=== PATIENT | male | born 1975 | race American Indian/Alaskan Native ===

== ENCOUNTER 2021-06-28 10:29 | Inpatient (IN) | payer MEDICAID ==
[2021-06-28 11:05] LABS: Bilirubin,Urine NEG (Negative); Blood,Urine SM (Negative); Color,Urine Yellow (Yellow); Mucus,Urine FEW /HPF; Protein,Urine <15 mg/dL mg/dL (Negative); Urobilinogen,Urine < 2.0 mg/dL (<2.0)
[2021-06-28 11:10] LABS: Benzodiazepines Screen,Urine Negative; Cocaine Screen,Urine Negative; Methadone Screen,Urine Negative; Opiate Screen,Urine Negative
[2021-06-28] MEDS ORDERED: ASPIRIN 325 MG TAB PO ONE (11:15)
--- NOTE | 2021-06-28 11:22 | Emergency Department Report ---
HPI - General Chief Complaint: Anxiety Time Seen by Provider: 06/28/21 11:06 - HPI HPI: Room 1 The patient is a 46-year-old male present with chief complaint of chest pain. Patient states since yesterday he has had left chest pain and anxiety. Patient describes his chest pain is squeezing in nature and intermittent. Patient states shortness of breath and diaphoresis with this pain but denies nausea/vomiting. Patient admits to a cough has been nonproductive for the past 2 to 3 days. Patient currently denies chest pain at this moment. Patient denies pleurisy or recent flights/long car trips. Patient had a history of HOCM and had corrective surgery. Patient states his last cardiac catheterization was over 5 years ago ED Past Medical Hx - Past Medical History Previous Medical History?: Yes Hx Hypertension: Yes Hx Diabetes: Yes Additional medical history: Hypertrophic obstructive cardiomyopathy status post surgical correction - Surgical History Past Surgical History?: Yes - Family History Family history: no significant - Social History Smoking Status: Current Every Day Smoker (1/2 pack/day) Substance Use Type: Alcohol (Rarely), Marijuana ED Review of Systems ROS: Stated complaint: ANXIETY/MED REFILL Other details as noted in HPI Constitutional: diaphoresis Eyes: denies: eye pain ENT: denies: throat pain Respiratory: shortness of breath Cardiovascular: chest pain Endocrine: no symptoms reported Gastrointestinal: denies: nausea, vomiting Genitourinary: denies: dysuria Musculoskeletal: denies: back pain Neurological: denies: headache Psychiatric: anxiety Physical Exam - Physical Exam Vital Signs: Vital Signs 06/28/21 06/28/21 10:32 10:47 Pulse Rate 96 H Blood Pressure 142/76 [Left] O2 Sat by Pulse 99 99 Oximetry Physical Exam: GENERAL: The patient is well-developed well-nourished male lying on stretcher not appearing to be in acute distress. [] HEENT: Normocephalic. Atraumatic. Extraocular motions are intact. Patient has moist mucous membranes. NECK: Supple. Trachea midline CHEST/LUNGS: Clear to auscultation. There is no respiratory distress noted. HEART/CARDIOVASCULAR: Regular. There is no tachycardia. There is no gallop rub or murmur. ABDOMEN: Abdomen is soft, nontender. Patient has normal bowel sounds. There is no abdominal distention. SKIN: There is no rash. There is no edema. There is no diaphoresis. NEURO: The patient is awake, alert, and oriented. The patient is cooperative. The patient has no focal neurologic deficits. The patient has normal speech. GCS 15 MUSCULOSKELETAL: There is no evidence of acute injury. ED Course Vital Signs 06/28/21 06/28/21 10:32 10:47 Pulse Rate 96 H Blood Pressure 142/76 [Left] O2 Sat by Pulse 99 99 Oximetry ED Medical Decision Making - Lab Data Result diagrams: 06/28/21 11:21 06/28/21 11:21 - EKG Data -: EKG Interpreted by Me EKG shows normal: sinus rhythm Rate: normal - EKG Data When compared to previous EKG there are: previous EKG unavailable Interpretation: nonspecific ST-T wave jam (T wave inversions leads V5, V6) - Differential Diagnosis ACS, PE, GERD, anxiety Critical care attestation.: If time is entered above; I have spent that time in minutes in the direct care of this critically ill patient, excluding procedure time. ED Disposition Clinical Impression: Chest pain, Amphetamine abuse, T wave inversion in EKG Disposition: ADMITTED INPATIENT Is pt being admited?: Yes Does the pt Need Aspirin: Yes Condition: Fair Instructions: Nonspecific Chest Pain, Adult Time of Disposition: 13:59 (Care transferred to the hospitalist (Dr. Brown)) Heart Score - HEART Score History: Moderately suspicious EKG: Non-specific Age: 45-65 Risk factors: 1-2 risk factors Troponin: < normal limit HEART Score: 4 - EKG Read Time Time EKG Completed: 13:53 EKG Read Time: 13:58
[2021-06-28 11:41] LABS: Basophils # (Auto) 0.1 K/mm3 (0.0-0.1); Basophils % (Auto) 0.7 % (0.0-1.8); Eosinophils % (Auto) 0.6 % (0.0-4.3); Hematocrit 38.4 % (35.5-45.6); Hemoglobin 13.1 gm/dl (11.8-15.2); Lymphocytes # (Auto) 2.5 K/mm3 (1.2-5.4); Lymphocytes % (Auto) 34.5 % (13.4-35.0); Mean Corpuscular HGB Conc 34 % (32-34); Mean Corpuscular Volume 91 fl (84-94); Monocytes # (Auto) 0.5 K/mm3 (0.0-0.8); Monocytes % (Auto) 6.6 % (0.0-7.3); Platelet Count 219 K/mm3 (140-440); Red Blood Count 4.21 M/mm3 (3.65-5.03); Red Cell Distribution Width 15.1 % (13.2-15.2)
[2021-06-28 12:02] LABS: Blood Urea Nitrogen 5 mg/dL (9-20); Creatine Kinase MB 4.9 ng/mL (0.0-4.0); Hemolysis Index 8
[2021-06-28 12:10] LABS: BUN/Creatinine Ratio 8
[2021-06-28 12:26] LABS: Amphetamine Screen,Urine Positive; Cannabinoid Screen,Urine Positive
--- NOTE | 2021-06-28 13:23 | XRay Report ---
XR chest 1V ap INDICATION / CLINICAL INFORMATION: chest pain COMPARISON: None available. FINDINGS: SUPPORT DEVICES: Left transvenous AICD. HEART / MEDIASTINUM: No significant abnormality. LUNGS / PLEURA: Lungs are clear. Costophrenic sulci are sharp. No pneumothorax. ADDITIONAL FINDINGS: No significant additional findings. IMPRESSION: 1. No acute findings. Signer Name: Jordan Barahona MD Signed: 06/28/2021 1:19 PM Workstation Name: [id number]
[2021-06-28] MEDS ORDERED: levoFLOXacin 500 MG TAB PO ONE (14:03)
[2021-06-28] MEDS ORDERED: NITROGLYCERIN 2% OINT 1 GM TP ONE (14:03)
[2021-06-28] MEDS ORDERED: ONDANSETRON 4 MG/2 ML INJ IV PRN (16:45)
[2021-06-28] MEDS ORDERED: ACETAMINOPHEN 325 MG TAB PO PRN (16:45)
[2021-06-28] MEDS ORDERED: HYDROmorphone 1 MG/1 ML INJ IV PRN (17:12)
[2021-06-28] MEDS ORDERED: METOCLOPRAMIDE 10 MG/2 ML INJ IV PRN (17:12)
[2021-06-28] MEDS ORDERED: INSULIN LISPRO 100 UNIT/ML SUB-Q ONE (17:37)
--- NOTE | 2021-06-28 17:48 | History and Physical Report ---
History of Present Illness Date of examination: 06/28/21 Date of admission: 06/28/2021 Chief complaint: Chest pain since yesterday History of present illness: The patient is a 46-year-old male present with chief complaint of chest pain. Patient states since yesterday he has had left chest pain and anxiety. Patient describes his chest pain is squeezing in nature and intermittent. Patient states shortness of breath and diaphoresis with this pain but denies nausea/ vomiting. Patient admits to a cough has been nonproductive for the past 2 to 3 days. Patient currently denies chest pain at this moment. Patient denies pleurisy or recent flights/long car trips. Patient had a history of HOCM and had corrective surgery. Patient states his last cardiac catheterization was over 5 years ago - Past Medical History --Previous Medical History?: Yes --Hypertension: Yes --Diabetes: Yes --Additional medical history: Hypertrophic obstructive cardiomyopathy status post surgical correction - Surgical History --Past Surgical History?: Yes - Family History --Family history: no significant - Social History --Smoking Status: Current Every Day Smoker (1/2 pack/day) --Substance Use Type: Alcohol (Rarely), Marijuana Review of Systems ROS: Stated complaint: ANXIETY/MED REFILL Other details as noted in HPI Constitutional: diaphoresis Eyes: denies: eye pain ENT: denies: throat pain Respiratory: shortness of breath Cardiovascular: chest pain Endocrine: no symptoms reported Gastrointestinal: denies: nausea, vomiting Genitourinary: denies: dysuria Musculoskeletal: denies: back pain Neurological: denies: headache Psychiatric: anxiety Medications and Allergies Allergies Allergy/AdvReac Type Severity Reaction Status Date / Time No Known Allergies Allergy Verified 06/28/21 10:33 Exam - Constitutional Vitals: Temp Pulse Resp BP Pulse Ox 73 16 150/82 100 06/28/21 15:52 06/28/21 15:52 06/28/21 15:52 06/28/21 15:52 General appearance: Present: no acute distress, well-nourished - EENT Eyes: Present: PERRL ENT: hearing intact, clear oral mucosa - Neck Neck: Present: supple, normal ROM - Respiratory Respiratory effort: normal Respiratory: bilateral: CTA - Cardiovascular Heart rate: 78 Rhythm: regular Heart Sounds: Present: S1 & S2. Absent: rub, click - Extremities Extremities: pulses symmetrical, No edema Peripheral Pulses: within normal limits - Abdominal General gastrointestinal: Present: soft, non-tender, non-distended, normal bowel sounds Male genitourinary: Present: normal - Integumentary Integumentary: Present: clear, warm, dry - Musculoskeletal Musculoskeletal: gait normal, strength equal bilaterally - Psychiatric Psychiatric: appropriate mood/affect, intact judgment & insight - Neurologic Neurologic: CNII-XII intact, moves all extremities HEART Score - HEART Score EKG: Non-specific Age: 45-65 Risk factors: 1-2 risk factors Troponin: Troponin T < 0.010 ng/mL (0.00-0.029) 06/28/21 11:21 Troponin: < normal limit - Critical Actions Critical Actions: 4-6 pts:12-16.6% risk of adverse cardiac event. Should be admitted Results - Labs CBC & Chem 7: 06/28/21 11:21 06/29/21 05:22 Labs: Laboratory Last Values WBC 7.3 K/mm3 (4.5-11.0) 06/28/21 11:21 RBC 4.21 M/mm3 (3.65-5.03) 06/28/21 11:21 Hgb 13.1 gm/dl (11.8-15.2) 06/28/21 11:21 Hct 38.4 % (35.5-45.6) 06/28/21 11:21 MCV 91 fl (84-94) 06/28/21 11:21 MCH 31 pg (28-32) 06/28/21 11:21 MCHC 34 % (32-34) 06/28/21 11:21 RDW 15.1 % (13.2-15.2) 06/28/21 11:21 Plt Count 219 K/mm3 (140-440) 06/28/21 11:21 Lymph % (Auto) 34.5 % (13.4-35.0) 06/28/21 11:21 Clark % (Auto) 6.6 % (0.0-7.3) 06/28/21 11:21 Eos % (Auto) 0.6 % (0.0-4.3) 06/28/21 11:21 Baso % (Auto) 0.7 % (0.0-1.8) 06/28/21 11:21 Lymph # (Auto) 2.5 K/mm3 (1.2-5.4) 06/28/21 11:21 Clark # (Auto) 0.5 K/mm3 (0.0-0.8) 06/28/21 11:21 Eos # (Auto) 0.0 K/mm3 (0.0-0.4) 06/28/21 11:21 Baso # (Auto) 0.1 K/mm3 (0.0-0.1) 06/28/21 11:21 Seg Neutrophils % 57.6 % (40.0-70.0) 06/28/21 11:21 Seg Neutrophils # 4.2 K/mm3 (1.8-7.7) 06/28/21 11:21 D-Dimer 240.16 ng/mlDDU (0-234) H 06/28/21 11:21 Sodium 137 mmol/L (137-145) 06/28/21 11:21 Potassium 3.7 mmol/L (3.6-5.0) 06/28/21 11:21 Chloride 96.0 mmol/L (98-107) L 06/28/21 11:21 Carbon Dioxide 27 mmol/L (22-30) 06/28/21 11:21 Anion Gap 18 mmol/L 06/28/21 11:21 BUN 5 mg/dL (9-20) L 06/28/21 11:21 Creatinine 0.6 mg/dL (0.8-1.3) L 06/28/21 11:21 Estimated GFR > 60 ml/min 06/28/21 11:21 BUN/Creatinine Ratio 8 % 06/28/21 11:21 Glucose 347 mg/dL (75-100) H 06/28/21 11:21 Calcium 9.0 mg/dL (8.4-10.2) 06/28/21 11:21 Total Creatine Kinase 165 units/L (55-170) 06/28/21 11:21 CK-MB (CK-2) 4.9 ng/mL (0.0-4.0) H 06/28/21 11:21 CK-MB (CK-2) Rel Index 2.9 (0-4) 06/28/21 11:21 Troponin T < 0.010 ng/mL (0.00-0.029) 06/28/21 11:21 Urine Color Yellow (Yellow) 06/28/21 10:47 Urine Turbidity Hazy (Clear) 06/28/21 10:47 Urine pH 5.0 (5.0-7.0) 06/28/21 10:47 Ur Specific [place] 1.032 (1.003-1.030) H 06/28/21 10:47 Urine Protein <15 mg/dl mg/dL (Negative) 06/28/21 10:47 Urine Glucose (UA) >=500 mg/dL (Negative) 06/28/21 10:47 Urine Ketones Neg mg/dL (Negative) 06/28/21 10:47 Urine Blood Sm (Negative) 06/28/21 10:47 Urine Nitrite Neg (Negative) 06/28/21 10:47 Urine Bilirubin Neg (Negative) 06/28/21 10:47 Urine Urobilinogen < 2.0 mg/dL (<2.0) 06/28/21 10:47 Ur Leukocyte Esterase Tr (Negative) 06/28/21 10:47 Urine WBC (Auto) 60.0 /HPF (0.0-6.0) H 06/28/21 10:47 Urine RBC (Auto) 1.0 /HPF (0.0-6.0) 06/28/21 10:47 U Epithel Cells (Auto) < 1.0 /HPF (0-13.0) 06/28/21 10:47 Urine Mucus Few /HPF 06/28/21 10:47 Urine Opiates Screen Negative 06/28/21 10:47 Urine Methadone Screen Negative 06/28/21 10:47 Ur Barbiturates Screen Negative 06/28/21 10:47 Ur Phencyclidine Scrn Negative 06/28/21 10:47 Ur Amphetamines Screen Positive 06/28/21 10:47 U Benzodiazepines Scrn Negative 06/28/21 10:47 Urine Cocaine Screen Negative 06/28/21 10:47 U Marijuana (THC) Screen Positive 06/28/21 10:47 Drugs of Abuse Note Disclamer 06/28/21 10:47 Short CBC 06/28/21 Range/Units 11:21 WBC 7.3 (4.5-11.0) K/mm3 Hgb 13.1 (11.8-15.2) gm/dl Hct 38.4 (35.5-45.6) % Plt Count 219 (140-440) K/mm3 [facility] 06/28/21 11:21 Sodium 137 Potassium 3.7 Chloride 96.0 L Carbon Dioxide 27 BUN 5 L Creatinine 0.6 L Glucose 347 H Calcium 9.0 Cardiac Enzymes 06/28/21 Range/Units 11:21 Total Creatine Kinase 165 (55-170) units/L CK-MB (CK-2) 4.9 H (0.0-4.0) ng/mL Troponin T < 0.010 (0.00-0.029) ng/mL Urine 06/28/21 Range/Units 10:47 Urine Color Yellow (Yellow) Urine pH 5.0 (5.0-7.0) Ur Specific [place] 1.032 H (1.003-1.030) Urine Protein <15 mg/dl (Negative) mg/dL Urine Glucose (UA) >=500 (Negative) mg/dL Short CBC 06/28/21 Range/Units 11:21 WBC 7.3 (4.5-11.0) K/mm3 Hgb 13.1 (11.8-15.2) gm/dl Hct 38.4 (35.5-45.6) % Plt Count 219 (140-440) K/mm3 [facility] 06/28/21 11:21 Sodium 137 Potassium 3.7 Chloride 96.0 L Carbon Dioxide 27 BUN 5 L Creatinine 0.6 L Glucose 347 H Calcium 9.0 Cardiac Enzymes 06/28/21 Range/Units 11:21 Total Creatine Kinase 165 (55-170) units/L CK-MB (CK-2) 4.9 H (0.0-4.0) ng/mL Troponin T < 0.010 (0.00-0.029) ng/mL Urine 06/28/21 Range/Units 10:47 Urine Color Yellow (Yellow) Urine pH 5.0 (5.0-7.0) Ur Specific [place] 1.032 H (1.003-1.030) Urine Protein <15 mg/dl (Negative) mg/dL Urine Glucose (UA) >=500 (Negative) mg/dL - Imaging and Cardiology EKG: report reviewed (Sinus rhythm no acute ST-T wave changes) Chest x-ray: report reviewed Assessment and Plan Advance Directives: Yes (Full code) VTE prophylaxis?: Chemical Plan of care discussed with patient/family: Yes - Patient Problems (1) Acute coronary syndrome Current Visit: Yes Status: Acute Plan to address problem: Serial troponins and Lexiscan in the morning (2) Hypertension Current Visit: Yes Status: Chronic Qualifiers: Hypertension type: primary hypertension Qualified Code(s): I10 - Essential (primary) hypertension Plan to address problem: Patient initiated on losartan 50 mg once a day (3) Amphetamine abuse Current Visit: Yes Status: Acute Plan to address problem: Patient counseled about amphetamine and major factor in blood pressure (4) UTI (urinary tract infection) Current Visit: Yes Status: Acute Qualifiers: Urinary tract infection type: acute cystitis Plan to address problem: IV Rocephin for now (5) Tetrahydrocannabinol (THC) dependence Current Visit: Yes Status: Chronic Plan to address problem: Patient counseled about marijuana use and its side effects (6) DVT prophylaxis Current Visit: Yes Status: Acute Plan to address problem: On anticoagulation GI prophylaxis (7) Advance care planning Current Visit: Yes Status: Acute Plan to address problem: Disease education conducted, care plan discussed, diagnosis discussed, prognosis discussed. Patient is full code. Patient acknowledges understanding and agreement with care plan. +30 minutes.
[2021-06-28] MEDS: SODIUM CHLORIDE 0.9% 1000 ML 1,000 ML IV SCH ×2 (18:05→21:08)
[2021-06-28] MEDS: oxyCODONE /ACETAMINOPHEN 5-325MG TAB PO PRN (21:09)
[2021-06-28] MEDS: FAMOTIDINE 20 MG/2 ML INJ IV SCH (21:09)
[2021-06-28] MEDS: HEPARIN 5,000 UNIT/1 ML VIAL SUB-Q SCH (21:09)
[2021-06-29] MEDS ORDERED: LORazepam 0.5 MG TAB PO STA (02:05)
[2021-06-29 06:13] LABS: Alanine Aminotransferase 13 units/L (7-56); Albumin 3.5 g/dL (3.9-5); BUN/Creatinine Ratio 13; Blood Urea Nitrogen 8 mg/dL (9-20); Calcium 8.3 mg/dL (8.4-10.2); Hemolysis Index 12
[2021-06-29] MEDS ORDERED: REGADENOSON 0.4 MG/5 ML INJ IV ONE (09:00)
[2021-06-29] MEDS: LOSARTAN 50 MG TAB PO SCH (10:55)
[2021-06-29] MEDS: FAMOTIDINE 20 MG/2 ML INJ IV SCH ×2 (10:56→21:44)
[2021-06-29] MEDS: MORPHINE 2 MG/1 ML INJ IV PRN ×2 (10:59→21:44)
[2021-06-29] MEDS: HEPARIN 5,000 UNIT/1 ML VIAL SUB-Q SCH ×2 (11:04→21:44)
--- NOTE | 2021-06-29 11:21 | Electrocardiograph Report ---
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
--- NOTE | 2021-06-29 12:32 | Consultation ---
History of Present Illness Consult date: 06/29/21 Consult reason: chest pain History of present illness: The patient is a 46-year-old man who has a cardiac history of hypertrophic ca rdiomyopathy, status post ICD implant. 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 It is uncertain if he complies with routine interrogation and management of his ICD. He reports that a cardiac catheterization several years ago at [place] revealed no significant coronary disease. He has a history of anxiety, and presents to the hospital at this time with symptoms of his anxiety. He basically describes an anxiety attack and while in the hospital has been constantly requesting Ativan. During review of systems, he also reports atypical, nonexertional and poorly characterized chest pain. He has no unusual shortness of breath, describes no palpitations, no syncope and no ICD discharge. EKG is a sinus rhythm, right axis deviation, and left ventricular hypertrophy. Chest x-ray reveals normal-sized cardiac silhouette, clear lungs, single-chamber ICD in situ. Serial troponin levels x3 were normal. Additional findings on his presentation is uncontrolled diabetes, the blood sugar was 489 on presentation and currently is in the mid 300s. Past History Past Medical History: other (Hypertrophic cardiomyopathy) Past Surgical History: Other (ICD implant) Medications and Allergies Allergies Allergy/AdvReac Type Severity Reaction Status Date / Time No Known Allergies Allergy Verified 06/28/21 10:33 Active Meds: Active Medications Acetaminophen (Acetaminophen 325 Mg Tab) 650 mg PO Q4H PRN PRN Reason: Pain MILD(1-3)/Fever >100.5/[place] Famotidine (Famotidine 20 Mg/2 Ml Inj) 20 mg IV BID [facility] Last Admin: 06/29/21 10:56 Dose: 20 mg Heparin Sodium (Porcine) (Heparin 5,000 Unit/1 Ml Vial) 5,000 unit SUB-Q Q12HR [facility] Last Admin: 06/29/21 11:04 Dose: 5,000 unit Hydromorphone HCl (Hydromorphone 1 Mg/1 Ml Inj) 0.5 mg IV Q3H PRN PRN Reason: Pain , Severe (7-10) Losartan Potassium (Losartan 50 Mg Tab) 50 mg PO QDAY [facility] Last Admin: 06/29/21 10:55 Dose: 50 mg Metoclopramide HCl (Metoclopramide 10 Mg/2 Ml Inj) 10 mg IV Q6H PRN PRN Reason: Nausea And Vomiting Morphine Sulfate (Morphine 2 Mg/1 Ml Inj) 2 mg IV Q4H PRN PRN Reason: Pain, Moderate (4-6) Last Admin: 06/29/21 10:59 Dose: 2 mg Ondansetron HCl (Ondansetron 4 Mg/2 Ml Inj) 4 mg IV Q3H PRN PRN Reason: Nausea And Vomiting Oxycodone/Acetaminophen (Oxycodone /Acetaminophen 5-325mg Tab) 1 tab PO Q6H PRN PRN Reason: Pain, Moderate (4-6) Last Admin: 06/28/21 21:09 Dose: 1 tab Sodium Chloride (Sodium Chloride 0.9% 10 Ml Flush Syringe) 10 ml IV BID [facility] Last Admin: 06/28/21 21:09 Dose: 10 ml Sodium Chloride (Sodium Chloride 0.9% 10 Ml Flush Syringe) 10 ml IV PRN PRN PRN Reason: LINE FLUSH Review of Systems Cardiovascular: chest pain, shortness of breath, no orthopnea, no palpitations, no rapid/irregular heart beat, no edema, no syncope, no lightheadedness Physical Examination Vital Signs Pulse BP Pulse Ox 96 H 142/76 99 06/28/21 10:32 06/28/21 10:32 06/28/21 10:32 General appearance: no acute distress HEENT: Positive: PERRL Neck: Positive: neck supple Cardiac: Positive: Reg Rate and Rhythm Lungs: Positive: Decreased Breath Sounds Neuro: Positive: Grossly Intact Abdomen: Positive: Soft Male genitourinary: Positive: deferred Skin: Positive: Clear Extremities: Absent: edema Results 06/28/21 11:21 06/29/21 05:22 Cardiac Enzymes 06/29/21 Range/Units 05:22 AST 10 (5-40) units/L Comprehensive Metabolic Panel 06/29/21 Range/Units 05:22 Sodium 137 (137-145) mmol/L Potassium 3.8 (3.6-5.0) mmol/L Chloride 98.4 (98-107) mmol/L Carbon Dioxide 26 (22-30) mmol/L BUN 8 L (9-20) mg/dL Creatinine 0.6 L (0.8-1.3) mg/dL Glucose 246 H (75-100) mg/dL Calcium 8.3 L (8.4-10.2) mg/dL AST 10 (5-40) units/L ALT 13 (7-56) units/L Alkaline Phosphatase 106 (35-129) units/L Total Protein 5.8 L (6.3-8.2) g/dL Albumin 3.5 L (3.9-5) g/dL EKG interpretations - Telemetry EKG Rhythm: Sinus Rhythm (With right axis deviation and left ventricular perjury) Assessment and Plan - Patient Problems (1) Chest pain Current Visit: Yes Status: Acute Plan to address problem: Patient presents with primary symptoms of his anxiety neurosis, atypical chest pain appears nonanginal. We will defer to internal medicine and psychiatry for further management of his presenting anxiety disorder. (2) Hypertrophic cardiomyopathy Current Visit: Yes Status: Acute Plan to address problem: The patient gives a history of hypertrophic cardiomyopathy for which he has an ICD implant, done at [facility]. He has no symptoms of heart failure, arrhythmias or ICD discharge. We will recommend an echocardiogram for left ventricular function assessment, and also recommend web content & social media manager consultation to devise strategies for this patient to resume optimal outpatient care of his cardiac status and his routine ICD care.
--- NOTE | 2021-06-29 20:35 | Progress Note ---
Assessment and Plan - Patient Problems (1) Acute coronary syndrome Current Visit: Yes Status: Acute Plan to address problem: Telemetry monitoring, serial cardiac enzymes, EKG, further care and evaluation as per cardiology team. (2) Hypertrophic cardiomyopathy Current Visit: Yes Status: Acute Plan to address problem: Cardiology team consulted. Further care and evaluation as per cardiology team. (3) DVT prophylaxis Current Visit: Yes Status: Acute Plan to address problem: SCD to bilateral lower extremities while in bed (4) Advance care planning Current Visit: Yes Status: Acute Plan to address problem: Disease education data, care plan discussed, diagnoses discussed, prognosis discussed, patient is full code, +30 minutes. History Interval history: 46 YO Male HD#2 with HUMA, HOCM S/P Surgical intervention. Patient resting comfortably. No reported nursing events. Patient denies pain. Patient found to have right axis deviation on EKG as well as left ventricular hypertrophy, cardiology team consulted. Discharge planning in a.m. Hospitalist Physical - Constitutional Vitals: Temp Pulse Resp BP Pulse Ox 98.5 F 85 18 155/87 100 06/29/21 11:25 06/29/21 11:25 06/29/21 11:25 06/29/21 11:25 06/29/21 19:45 General appearance: Present: no acute distress - EENT Eyes: Present: PERRL ENT: hearing intact - Neck Neck: Present: supple - Respiratory Respiratory effort: normal Respiratory: bilateral: CTA - Cardiovascular Rhythm: regular Heart Sounds: Present: S1 & S2 - Extremities Extremities: no ischemia Peripheral Pulses: within normal limits - Abdominal General gastrointestinal: soft, non-tender, non-distended - Integumentary Integumentary: Present: clear, dry - Psychiatric Psychiatric: agitated - Neurologic Neurologic: CNII-XII intact HEART Score - HEART Score EKG: Non-specific Age: 45-65 Risk factors: 1-2 risk factors Troponin: Troponin T < 0.010 ng/mL (0.00-0.029) 06/28/21 23:35 Troponin: < normal limit - Critical Actions Critical Actions: 4-6 pts:12-16.6% risk of adverse cardiac event. Should be admitted Results - Labs CBC & Chem 7: 06/28/21 11:21 06/29/21 05:22 Labs: Laboratory Last Values WBC 7.3 K/mm3 (4.5-11.0) 06/28/21 11:21 RBC 4.21 M/mm3 (3.65-5.03) 06/28/21 11:21 Hgb 13.1 gm/dl (11.8-15.2) 06/28/21 11:21 Hct 38.4 % (35.5-45.6) 06/28/21 11:21 MCV 91 fl (84-94) 06/28/21 11:21 MCH 31 pg (28-32) 06/28/21 11:21 MCHC 34 % (32-34) 06/28/21 11:21 RDW 15.1 % (13.2-15.2) 06/28/21 11:21 Plt Count 219 K/mm3 (140-440) 06/28/21 11:21 Lymph % (Auto) 34.5 % (13.4-35.0) 06/28/21 11:21 [place] % (Auto) 6.6 % (0.0-7.3) 06/28/21 11:21 Eos % (Auto) 0.6 % (0.0-4.3) 06/28/21 11:21 Baso % (Auto) 0.7 % (0.0-1.8) 06/28/21 11:21 Lymph # (Auto) 2.5 K/mm3 (1.2-5.4) 06/28/21 11:21 [place] # (Auto) 0.5 K/mm3 (0.0-0.8) 06/28/21 11:21 Eos # (Auto) 0.0 K/mm3 (0.0-0.4) 06/28/21 11:21 Baso # (Auto) 0.1 K/mm3 (0.0-0.1) 06/28/21 11:21 Seg Neutrophils % 57.6 % (40.0-70.0) 06/28/21 11:21 Seg Neutrophils # 4.2 K/mm3 (1.8-7.7) 06/28/21 11:21 D-Dimer 240.16 ng/mlDDU (0-234) H 06/28/21 11:21 Sodium 137 mmol/L (137-145) 06/29/21 05:22 Potassium 3.8 mmol/L (3.6-5.0) 06/29/21 05:22 Chloride 98.4 mmol/L (98-107) 06/29/21 05:22 Carbon Dioxide 26 mmol/L (22-30) 06/29/21 05:22 Anion Gap 16 mmol/L 06/29/21 05:22 BUN 8 mg/dL (9-20) L 06/29/21 05:22 Creatinine 0.6 mg/dL (0.8-1.3) L 06/29/21 05:22 Estimated GFR > 60 ml/min 06/29/21 05:22 BUN/Creatinine Ratio 13 % 06/29/21 05:22 Glucose 246 mg/dL (75-100) H 06/29/21 05:22 POC Glucose 264 mg/dL (70-105) H 06/29/21 11:23 Hemoglobin A1c 9.3 % (4-6) H 06/28/21 11:21 Calcium 8.3 mg/dL (8.4-10.2) L 06/29/21 05:22 Total Bilirubin 0.50 mg/dL (0.1-1.2) 06/29/21 05:22 AST 10 units/L (5-40) 06/29/21 05:22 ALT 13 units/L (7-56) 06/29/21 05:22 Alkaline Phosphatase 106 units/L (35-129) 06/29/21 05:22 Total Creatine Kinase 165 units/L (55-170) 06/28/21 11:21 CK-MB (CK-2) 4.9 ng/mL (0.0-4.0) H 06/28/21 11:21 CK-MB (CK-2) Rel Index 2.9 (0-4) 06/28/21 11:21 Troponin T < 0.010 ng/mL (0.00-0.029) 06/28/21 23:35 Total Protein 5.8 g/dL (6.3-8.2) L 06/29/21 05:22 Albumin 3.5 g/dL (3.9-5) L 06/29/21 05:22 Albumin/Globulin Ratio 1.5 % 06/29/21 05:22 Urine Color Yellow (Yellow) 06/28/21 10:47 Urine Turbidity Hazy (Clear) 06/28/21 10:47 Urine pH 5.0 (5.0-7.0) 06/28/21 10:47 Ur Specific [place] 1.032 (1.003-1.030) H 06/28/21 10:47 Urine Protein <15 mg/dl mg/dL (Negative) 06/28/21 10:47 Urine Glucose (UA) >=500 mg/dL (Negative) 06/28/21 10:47 Urine Ketones Neg mg/dL (Negative) 06/28/21 10:47 Urine Blood Sm (Negative) 06/28/21 10:47 Urine Nitrite Neg (Negative) 06/28/21 10:47 Urine Bilirubin Neg (Negative) 06/28/21 10:47 Urine Urobilinogen < 2.0 mg/dL (<2.0) 06/28/21 10:47 Ur Leukocyte Esterase Tr (Negative) 06/28/21 10:47 Urine WBC (Auto) 60.0 /HPF (0.0-6.0) H 06/28/21 10:47 Urine RBC (Auto) 1.0 /HPF (0.0-6.0) 06/28/21 10:47 U Epithel Cells (Auto) < 1.0 /HPF (0-13.0) 06/28/21 10:47 Urine Mucus Few /HPF 06/28/21 10:47 Urine Opiates Screen Negative 06/28/21 10:47 Urine Methadone Screen Negative 06/28/21 10:47 Ur Barbiturates Screen Negative 06/28/21 10:47 Ur Phencyclidine Scrn Negative 06/28/21 10:47 Ur Amphetamines Screen Positive 06/28/21 10:47 U Benzodiazepines Scrn Negative 06/28/21 10:47 Urine Cocaine Screen Negative 06/28/21 10:47 U Marijuana (THC) Screen Positive 06/28/21 10:47 Drugs of Abuse Note Disclamer 06/28/21 10:47 Microbiology: Microbiology 06/28/21 10:49 Urine,Clean Catch Urine Culture - Preliminary Gram Negative Vladislav Pelletier/IV: Voiding Method Urinal Active Medications - Current Medications Current Medications: Generic Name Dose Route Start Last Admin Trade Name Freq PRN Reason Stop Dose Admin Acetaminophen 650 mg 06/28/21 16:45 Acetaminophen 325 Mg Tab PO Q4H PRN Pain MILD(1-3)/Fever >100.5/HOFFMANN Famotidine 20 mg 06/28/21 22:00 06/29/21 10:56 Famotidine 20 Mg/2 Ml Inj IV 20 mg BID ALYCIA Administration Heparin Sodium (Porcine) 5,000 unit 06/28/21 22:00 06/29/21 11:04 Heparin 5,000 Unit/1 Ml Vial SUB-Q 5,000 unit Q12HR ALYCIA Administration Hydromorphone HCl 0.5 mg 06/28/21 17:12 Hydromorphone 1 Mg/1 Ml Inj IV Q3H PRN Pain , Severe (7-10) Losartan Potassium 50 mg 06/29/21 10:00 06/29/21 10:55 Losartan 50 Mg Tab PO 50 mg QDAY ALYCIA Administration Metoclopramide HCl 10 mg 06/28/21 17:12 Metoclopramide 10 Mg/2 Ml Inj IV Q6H PRN Nausea And Vomiting Morphine Sulfate 2 mg 06/28/21 17:12 06/29/21 10:59 Morphine 2 Mg/1 Ml Inj IV 2 mg Q4H PRN Administration Pain, Moderate (4-6) Ondansetron HCl 4 mg 06/28/21 16:45 Ondansetron 4 Mg/2 Ml Inj IV Q3H PRN Nausea And Vomiting Oxycodone/Acetaminophen 1 tab 06/28/21 17:12 06/28/21 21:09 Oxycodone /Acetaminophen 5-325mg Tab PO 1 tab Q6H PRN Administration Pain, Moderate (4-6) Sodium Chloride 10 ml 06/28/21 22:00 06/28/21 21:09 Sodium Chloride 0.9% 10 Ml Flush Syringe IV 10 ml BID ALYCIA Administration Sodium Chloride 10 ml 06/28/21 16:45 Sodium Chloride 0.9% 10 Ml Flush Syringe IV PRN PRN LINE FLUSH
[2021-06-29] MEDS: oxyCODONE /ACETAMINOPHEN 5-325MG TAB PO PRN (23:50)
[2021-06-30] MEDS ORDERED: ALPRAZolam 0.25 MG TAB PO ONE (01:09)
[2021-06-30] MEDS: MORPHINE 2 MG/1 ML INJ IV PRN ×2 (05:04→12:13)
[2021-06-30] MEDS ORDERED: DEXTROSE 50% IN WATER (25GM) 50 ML SYRINGE IV PRN (07:30)
[2021-06-30 07:48] VITALS: BP 140/97
[2021-06-30] MEDS: LOSARTAN 50 MG TAB PO SCH (09:18)
[2021-06-30] MEDS: oxyCODONE /ACETAMINOPHEN 5-325MG TAB PO PRN (09:18)
[2021-06-30] MEDS: HEPARIN 5,000 UNIT/1 ML VIAL SUB-Q SCH (09:18)
[2021-06-30] MEDS: FAMOTIDINE 20 MG/2 ML INJ IV SCH (09:18)
[2021-06-30] MEDS: INSULIN LISPRO 100 UNIT/ML SUB-Q SCH ×2 (09:19→12:13)
--- NOTE | 2021-06-30 11:18 | Progress Note ---
Assessment and Plan - Patient Problems (1) Chest pain Current Visit: Yes Status: Acute Plan to address problem: Patient presents with primary symptoms of his anxiety neurosis, atypical chest pain appears nonanginal. We will defer to internal medicine and psychiatry for further management of his presenting anxiety disorder. (2) Hypertrophic cardiomyopathy Current Visit: Yes Status: Acute Plan to address problem: The patient gives a history of hypertrophic cardiomyopathy for which he has an ICD implant, done at [facility]. He has no symptoms of heart failure, arrhythmias or ICD discharge. Echocardiogram shows normal left ventricular systolic function with ejection fraction 60 to 65%, moderate to severe concentric left ventricular hypertrophy, and a modest gradient across the left ventricular outflow tract. With respect to cardiac management, we will recommend that he stop smoking and presents for outpatient cardiac follow-up in 7 to 10 days post discharge. Subjective Date of service: 06/30/21 Principal diagnosis: Anxiety Interval history: Patient is comfortable, his main complaint continues to be anxiety. He is constantly concerned about getting enough Ativan to ameliorate his anxiety symptoms. There are no cardiac complaints, no new cardiac events reported. Objective Vital Signs Temp Pulse Resp BP Pulse Ox 06/30/21 07:47 98.1 F 94 H 19 140/97 100 06/30/21 05:49 836 H 06/30/21 04:57 98.9 F 88 18 142/94 100 06/30/21 01:00 91 H 06/29/21 23:33 98.9 F 91 H 18 157/99 100 06/29/21 19:58 98.7 F 80 18 140/88 100 06/29/21 19:45 100 06/29/21 16:14 97.7 F 86 18 152/98 99 06/29/21 11:25 98.5 F 85 18 155/87 99 - Physical Examination General: No Apparent Distress HEENT: Positive: PERRL Neck: Positive: neck supple Cardiac: Positive: Reg Rate and Rhythm Lungs: Positive: Decreased Breath Sounds Neuro: Positive: Grossly Intact Abdomen: Positive: Soft Skin: Positive: Clear Extremities: Absent: edema - Imaging and Cardiology EKG: report reviewed (Sinus rhythm no acute ST-T wave changes)
--- NOTE | 2021-06-30 16:30 | Discharge Summary ---
Providers - Providers Date of Admission: 06/28/21 16:46 Attending physician: LESLY GUNN 06/28/21 17:12 Consult to Physician [CONS] Routine Comment: Consulting Provider: KILO WHEAT Physician Instructions: Reason For Exam: Acute coronary syndrome Primary care physician: DIE SIZER Hospitalization Condition: Fair Disposition: 30 STILL A PATIENT - Discharge Diagnoses (1) Acute coronary syndrome Status: Acute (2) Hypertrophic cardiomyopathy Status: Acute (3) DVT prophylaxis Status: Acute (4) Advance care planning Status: Acute Exam - Constitutional Vitals: Temp Pulse Resp BP Pulse Ox 98.1 F 94 H 19 140/97 100 06/30/21 07:47 06/30/21 07:47 06/30/21 07:47 06/30/21 07:47 06/30/21 07:47 Plan Follow up with: PRIMARY CARE, [Primary Care Provider] - 3-5 Days Prescriptions: LORazepam [Ativan] 0.5 mg PO BID #15 tab
== END 2021-06-30 17:39 | disposition home or self-care (01) | DRG 313 ==
LOC: ED 10:29 → 4A 16:46
PROVIDERS: ADMIT Internal Medicine; ATTEND Internal Medicine
DX: R07.89 Other chest pain (principal); F15.10 Other stimulant abuse, uncomplicated; F41.9 Anxiety disorder, unspecified; N30.90 Cystitis, unspecified without hematuria; I10 Essential (primary) hypertension; E11.9 Type 2 diabetes mellitus without complications; F17.210 Nicotine dependence, cigarettes, uncomplicated; I42.2 Other hypertrophic cardiomyopathy
CPT/HCPCS: 36415; 71045; 80048; 80053; 80307; 81001; 82550; 82553; 82962; 83036; 84484; 85025; 85379; 87076; 87086; 87186; 93005; 93306; 99285; G0378; J3490; Q9967; C8929; J1644; J1815; J2270; J7030; Q0177

== ENCOUNTER 2021-08-16 01:16 | Emergency (ER) | payer MEDICAID ==
[2021-08-16 03:45] VITALS: BP 144/76
[2021-08-16] MEDS ORDERED: ASPIRIN 325 MG TAB PO ONE (03:45)
--- NOTE | 2021-08-16 04:20 | XRay Report ---
CHEST 2 VIEWS INDICATION / CLINICAL INFORMATION: chest pain. COMPARISON: June 2021 FINDINGS: SUPPORT DEVICES: Unchanged. HEART / MEDIASTINUM: No significant abnormality. LUNGS / PLEURA: No significant pulmonary or pleural abnormality. No pneumothorax. ADDITIONAL FINDINGS: No significant additional findings. IMPRESSION: 1. No acute findings. Signer Name: Naresh Oswald DO Signed: 08/16/2021 4:15 AM Workstation Name: [id number]
[2021-08-16 04:28] LABS: Basophils # (Auto) 0.1 K/mm3 (0.0-0.1); Basophils % (Auto) 0.8 % (0.0-1.8); Eosinophils % (Auto) 0.2 % (0.0-4.3); Hematocrit 41.6 % (35.5-45.6); Hemoglobin 13.9 gm/dl (11.8-15.2); Lymphocytes # (Auto) 3.1 K/mm3 (1.2-5.4); Lymphocytes % (Auto) 24.6 % (13.4-35.0); Mean Corpuscular HGB Conc 33 % (32-34); Mean Corpuscular Volume 92 fl (84-94); Monocytes % (Auto) 8.1 % (0.0-7.3); Platelet Count 224 K/mm3 (140-440); Red Blood Count 4.52 M/mm3 (3.65-5.03); Red Cell Distribution Width 14.7 % (13.2-15.2)
[2021-08-16 04:53] LABS: Alanine Aminotransferase 7 units/L (7-56); Albumin 4.2 g/dL (3.9-5); BUN/Creatinine Ratio 19; Blood Urea Nitrogen 17 mg/dL (9-20); Calcium 9.9 mg/dL (8.4-10.2); Hemolysis Index 8
--- NOTE | 2021-08-17 10:44 | Electrocardiograph Report ---
[facility] Test Date: 2021-08-16 Test Time: 03:36:52 Pat Name: TRISTON MONTILLA Department: Room: Gender: M [employer]: SONJA : 1975 Requested By: ED DOC Order Number: [id number] Reading MD: Jorge L Chew Measurements Intervals [place] Rate: 120 P: 86 NC: 137 QRS: -69 QRSD: 106 T: 97 QT: 333 QTc: 471 Interpretive Statements Sinus tachycardia Left anterior fascicular block LVH with secondary repolarization abnormality Probable lateral infarct, age indeterminate Compared to ECG 06/28/2021 13:53:04 Sinus rate has increased Electronically Signed On 08-17-2021 10:44:10 EDT by Jorge L Chew
== END 2021-08-16 16:00 | disposition left against medical advice (07) ==
LOC: ED 01:16
DX: M79.603 Pain in arm, unspecified (principal); R07.9 Chest pain, unspecified; Z53.21 Procedure and treatment not carried out due to patient leaving prior to being seen by health care provider
CPT/HCPCS: 36415; 71046; 80053; 84484; 85025; 93005

== ENCOUNTER 2021-11-07 23:19 | Emergency (ER) | payer MEDICAID ==
[2021-11-08 00:22] VITALS: BP 156/80
== END 2021-11-08 04:37 | disposition left against medical advice (07) ==
LOC: ED 23:19
DX: R07.9 Chest pain, unspecified (principal); Z53.21 Procedure and treatment not carried out due to patient leaving prior to being seen by health care provider
CPT/HCPCS: 93005